=== PATIENT | female | born 1990 | race Caucasian/White ===

== ENCOUNTER 2022-10-02 03:17 | Emergency (ER) | payer MEDICAID ==
[~2022-10-02] VITALS: Ht 167.6 cm; Wt 61.2 kg
--- NOTE | 2022-10-02 03:30 | NUR ---
TO ER BED 9. [id number]. FRM HOME FOR SYNCOPAL EPISODE, HIT HER HEAD ON THE SINK. +KO. BRUISING NOTED TO L EYE/EYEBROW. PT IS ALERT AND ORIENTED. RR EVEN AND NONLABORED. CONNECTED TO MONITOR
[2022-10-02] MEDS ORDERED: IV NS 0.9% 1,000 ML BAG IV ONE (04:00)
--- NOTE | 2022-10-02 04:02 | NUR ---
IV LINE ESTABLISHED, [id number]
--- NOTE | 2022-10-02 04:02 | NUR ---
BLOOD COLLECTED AND SENT TO LAB
--- NOTE | 2022-10-02 04:03 | NUR ---
WEIVER SIGNED BY PT
--- NOTE | 2022-10-02 04:03 | NUR ---
[facility] AT BEDSIDE FOR EKG
[2022-10-02 04:12] LABS: BASOPHILS % (AUTO) 0.5 % (0.0-2.0); EOSINOPHILS % (AUTO) 1.4 % (0.0-6.0); HEMATOCRIT 37 % (33-45); HEMOGLOBIN 12.7 g/dL (11.5-14.8); LYMPHOCYTES # (AUTO) 2.6 K/uL (0.8-4.8); LYMPHOCYTES % (AUTO) 36.9 % (20.0-44.0); MEAN CORPUSCULAR HGB CONC 34 g/dl (31.0-36.0); MEAN CORPUSCULAR VOLUME 92 fL (82-100); MONOCYTES # (AUTO) 0.5 K/uL (0.1-1.30); MONOCYTES % (AUTO) 7.2 % (2.0-12.0); NEUTROPHILS # (AUTO) 3.8 K/uL (1.8-8.9); PLATELET COUNT (AUTO) 267 K/uL (150-450); RED BLOOD CELL COUNT(AUTO) 4.07 MIL/uL (4.0-5.2)
[2022-10-02] MEDS ORDERED: ONDANSETRON HCL/PF 4 MG/2 ML VIAL ONE (04:12)
[2022-10-02] MEDS ORDERED: MORPHINE SULFATE INJ 2 MG/ML DISP.SYRIN ONE (04:12)
--- NOTE | 2022-10-02 04:20 | NUR ---
[facility]
[2022-10-02] MEDS ORDERED: ONDANSETRON HCL/PF 4 MG/2 ML VIAL IV ONE (04:30)
[2022-10-02] MEDS ORDERED: MORPHINE SULFATE INJ 2 MG/ML DISP.SYRIN IV ONE (04:30)
[2022-10-02 04:32] LABS: ALANINE AMINOTRANSFERASE 19 U/L (12-78); ALKALINE PHOSPHATASE 44 U/L (46-116); ASPARTATE AMINOTRANSFERASE 17 U/L (15-37); BILIRUBIN,DIRECT 0.1 mg/dL (0.0-0.2); BILIRUBIN,TOTAL 0.6 mg/dL (0.2-1.0); CALCIUM, SERUM 9.3 mg/dL (8.5-10.1); CARBON DIOXIDE 30 mmol/L (21-32); CHLORIDE 103 mmol/L (98-107); CREATININE 0.9 mg/dL (0.6-1.3); GLUCOSE 93 mg/dL (74-106); POTASSIUM 4.4 mmol/L (3.5-5.1); SODIUM SERUM 137 mmol/L (136-145); TOTAL PROTEIN, SERUM 6.9 g/dL (6.4-8.2); UREA NITROGEN, BLOOD 13 mg/dL (7-18)
[2022-10-02] MEDS ORDERED: HYDR-3972 PO (05:16)
[2022-10-02 05:54] LABS: BILIRUBIN,URINE 1+ (NEGATIVE); COLOR,URINE YELLOW (YELLOW); LEUKOCYTE ESTERASE ,URINE NEGATIVE (NEGATIVE); NITRITE, URINE NEGATIVE (NEGATIVE); PROTEIN,URINE TRACE mg/dl (NEGATIVE); UGLUCOSE NEGATIVE (NEGATIVE); UROBILINOGEN,URINE 0.2 EU/dL (0.2)
--- NOTE | 2022-10-02 06:03 | NUR ---
Patient discharged to home in stable condition. Written and verbal after care instructions given. Patient verbalizes understanding of instruction.
--- NOTE | 2022-10-02 06:03 | NUR ---
IV removed. Catheter intact and site benign. Pressure and 4x4 applied to site. No bleeding noted.
[2022-10-02 06:06] LABS: BACTERIA,URINE None seen /HPF (None Seen); RBC,URINE 0-2 /HPF (0-2); SQUAMOUS EPITHELIAL CELL,UR Few /HPF (None Seen); WBC,URINE 0-2 /HPF (0-3)
[2022-10-02 07:07] VITALS: BP 112/70
== END 2022-10-02 07:07 | disposition home or self-care (01) ==
LOC: ER 03:30
DX: R55 Syncope and collapse (principal); S09.90XA Unspecified injury of head, initial encounter; W18.39XA Other fall on same level, initial encounter; Y92.019 Unspecified place in single-family (private) house as the place of occurrence of the external cause; S62.306A Unspecified fracture of fifth metacarpal bone, right hand, initial encounter for closed fracture; Z20.822 Contact with and (suspected) exposure to COVID-19
CPT/HCPCS: 99285; 96374; 70450; 71045; 96361; 96375; 87426; 73130; 85025; 80048; 80076; 84703; 36415; 84484; 85730; 80307; 29125; 81001; 93005; J2405; J7030; J2270; C9803

== ENCOUNTER 2023-05-30 01:38 | Emergency (ER) | payer BC, MEDICAID ==
[~2023-05-30] VITALS: Ht 167.6 cm; Wt 61.2 kg
[~2023-05-30 01:38] MED LIST: HYDR-3972 PO
[2023-05-30 01:52] VITALS: BP 133/84; TEMP 98.6
[2023-05-30] MEDS ORDERED: NABU-141 PO (01:55)
[2023-05-30] MEDS ORDERED: CEPH500C2 PO (01:55)
[2023-05-30] MEDS ORDERED: CEPHALEXIN MONOHYDRATE 500 MG CAPSULE PO ONE ×2 (01:57→02:00)
[2023-05-30] MEDS ORDERED: KETOROLAC TROMETHAMINE INJ 60 MG/2 ML VIAL IM ONE ×2 (01:57→02:00)
[2023-05-30 02:04] VITALS: O2SAT 99
== END 2023-05-30 02:04 | disposition home or self-care (01) ==
LOC: ER 01:41
DX: L03.012 Cellulitis of left finger (principal); Z60.2 Problems related to living alone
CPT/HCPCS: 99283; 96372; J1885